=== PATIENT | male | born 1980 | race Caucasian/White ===

== ENCOUNTER 2018-08-04 01:34 | Emergency (ER) | payer OTHER ==
[2018-08-04] MEDS ORDERED: Aspirin 81 MG Tab.Chew PO ONE (02:08)
[2018-08-04] MEDS ORDERED: Nitroglycerin 0.4 MG Tab.SL SL ONE (02:25)
[2018-08-04 02:40] LABS: CHLORIDE,CL 101 mmol/L (98-107); SODIUM,NA 136 mmol/L (136-145)
[2018-08-04 02:41] LABS: ANION GAP 8.2 mmol/L (10-20)
[2018-08-04] MEDS ORDERED: Ketorolac 30 MG/ML SDV IVPUSH ONE (03:14)
[2018-08-04] MEDS ORDERED: methylPREDNISolone Sodium Succinate 125 MG/2 ML SDV IVPUSH ONE (03:14)
[2018-08-04] MEDS ORDERED: Azithromycin 250 MG Tab PO ONE (03:15)
--- NOTE | 2018-08-04 03:45 | EDM.PDOC ---
ED HPI GENERAL MEDICAL PROBLEM - General Chief Complaint: Cardiovascular Problem Stated Complaint: Chest Pain Time Seen by Provider: 08/04/18 01:50 Source of Information: Reports: Patient - History of Present Illness INITIAL COMMENTS - FREE TEXT/NARRATIVE: Chest pain, respirophasic and worse with movement. States also has a pain in his L arm as well. Denies any trauma. States that he had a heart cath in 2017- states that it "showed scar tissue". He received no stent or angioplasty. He is not currently on any medications. Denies any PMH. States that he has had some cough. Non-productive. No nausea, vomiting, or diarrhea. Onset: Today Location: Reports: Chest Quality: Reports: Dull Severity: Severe Left Middle Chest Pain Score (Numeric/FACES): 8 - Related Data Allergies Allergy/AdvReac Type Severity Reaction Status Date / Time meperidine [From Demerol] Allergy Anaphylactic Verified 08/04/18 02:01 Shock Past Medical History Cardiovascular History: Reports: Other (See Below) Other Cardiovascular History: Patient states he had an mild [place] in March of 2017 Genitourinary History: Reports: Renal Calculus - Infectious Disease History Infectious Disease History: Reports: Chicken Pox - Past Surgical History Cardiovascular Surgical History: Reports: Other (See Below) Other Cardiovascular Surgeries/Procedures: Did go the [facility] in [place] and states they only found scarring. Male Surgical History: Reports: Lithotripsy ([facility]) Other Male Surgeries/Procedures: previous stent placement-since removed- 11 mm stone per patient report Social & Family History - Family History Cardiac: Reports: CAD, Hypertension Oncologic: Reports: Pancreatic, Prostate - Tobacco Use Smoking Status *Q: Current Every Day Smoker Years of Tobacco use: 20 Packs/Tins Daily: 1 - Caffeine Use Caffeine Use: Reports: Coffee - Recreational Drug Use Recreational Drug Use: No ED ROS GENERAL - Review of Systems Review Of Systems: See Below Constitutional: Reports: No Symptoms HEENT: Reports: No Symptoms Respiratory: Reports: Pleuritic Chest Pain Cardiovascular: Reports: Other (negative heart cath 2016) Endocrine: Reports: No Symptoms GI/Abdominal: Reports: No Symptoms Musculoskeletal: Reports: Other (chest wall pain) Skin: Reports: No Symptoms Neurological: Reports: No Symptoms ED EXAM, GENERAL - Physical Exam Exam: See Below General Appearance: Alert, WD/WN, No Apparent Distress Respiratory/Chest: No Respiratory Distress, Lungs Clear, Normal Breath Sounds, No Accessory Muscle Use, Chest Non-Tender Cardiovascular: Normal Peripheral Pulses, Regular Rate, Rhythm, No Edema, No Gallop, No JVD, No Murmur, No Rub GI/Abdominal: Normal Bowel Sounds, Soft, Non-Tender, No Organomegaly, No Distention, No Abnormal Bruit, No Mass Extremities: Normal Inspection, Normal Range of Motion, Non-Tender, Normal Capillary Refill, No Pedal Edema Neurological: Alert, Oriented, CN II-XII Intact, Normal Cognition, Normal Gait, Normal Reflexes, No Motor/Sensory Deficits Skin Exam: Warm, Dry, Intact, Normal Color, No Rash Course - Vital Signs Last Recorded V/S: Last Vital Signs Temp 36.8 C 08/04/18 02:02 Pulse 66 08/04/18 02:02 Resp 12 08/04/18 02:02 BP 118/76 08/04/18 02:41 Pulse Ox 98 08/04/18 02:02 - Orders/Labs/Meds Orders: Active Orders 24 hr Category Date Time Status EKG Documentation Completion [RC] STAT Care 08/04/18 01:58 Active Chest 2V [CR] Stat Exams 08/04/18 01:59 Taken Labs: Laboratory Tests 08/04/18 08/04/18 08/04/18 Range/Units 02:05 02:05 02:05 WBC 12.1 H (4.0-10.0) x10^3/uL RBC 4.31 L (4.5-6.0) x10^6/uL Hgb 14.2 (14.0-18.0) g/dL Hct 40.5 (40.0-52.0) % MCV 94.0 H (78.0-93.0) fL MCH 32.9 H (26.0-32.0) pg MCHC 35.1 (32.0-36.0) g/dL RDW Coeff of Jade 13.4 (10.0-15.0) % Plt Count 175 (130-400) x10^3/uL Neut % (Auto) 50.2 (50.0-80.0) % Lymph % (Auto) 37.4 (25.0-50.0) % Hickman % (Auto) 9.9 (2.0-11.0) % Eos % (Auto) 2.2 (0.0-4.0) % Baso % (Auto) 0.3 (0.2-1.2) % PT 9.6 (9.6-11.4) SEC INR 0.9 L (2.0-3.5) D-Dimer, Quantitative (<=0.58) mg/LFEU Sodium 136 (136-145) mmol/L Potassium 4.2 (3.5-5.1) mmol/L Chloride 101 (98-107) mmol/L Carbon Dioxide 31 (21-32) mmol/L Anion Gap 8.2 L (10-20) mmol/L BUN 20 H (7-18) mg/dL Creatinine 1.0 (0.70-1.30) mg/dL Est Cr Clr Drug Dosing TNP Estimated GFR (MDRD) > 60 Glucose 97 (74-106) mg/dL Calcium 8.6 (8.5-10.1) mg/dL Corrected Calcium 8.84 (8.5-10.1) mg/dL Phosphorus 4.4 (2.6-4.7) mg/dL Magnesium 1.9 (1.8-2.4) mg/dL Total Bilirubin 0.4 (0.2-1.0) mg/dL AST 17 (15-37) U/L ALT 34 (16-63) U/L Alkaline Phosphatase 128 H (46-116) U/L C-Reactive Protein < 0.2 (<=0.9) mg/dL Total Protein 7.1 (6.4-8.2) g/dL Albumin 3.7 (3.4-5.0) g/dL Globulin 3.4 Albumin/Globulin Ratio 1.09 08/04/18 Range/Units 02:05 WBC (4.0-10.0) x10^3/uL RBC (4.5-6.0) x10^6/uL Hgb (14.0-18.0) g/dL Hct (40.0-52.0) % MCV (78.0-93.0) fL MCH (26.0-32.0) pg MCHC (32.0-36.0) g/dL RDW Coeff of Jade (10.0-15.0) % Plt Count (130-400) x10^3/uL Neut % (Auto) (50.0-80.0) % Lymph % (Auto) (25.0-50.0) % Hickman % (Auto) (2.0-11.0) % Eos % (Auto) (0.0-4.0) % Baso % (Auto) (0.2-1.2) % PT (9.6-11.4) SEC INR (2.0-3.5) D-Dimer, Quantitative 0.21 (<=0.58) mg/LFEU Sodium (136-145) mmol/L Potassium (3.5-5.1) mmol/L Chloride (98-107) mmol/L Carbon Dioxide (21-32) mmol/L Anion Gap (10-20) mmol/L BUN (7-18) mg/dL Creatinine (0.70-1.30) mg/dL Est Cr Clr Drug Dosing Estimated GFR (MDRD) Glucose (74-106) mg/dL Calcium (8.5-10.1) mg/dL Corrected Calcium (8.5-10.1) mg/dL Phosphorus (2.6-4.7) mg/dL Magnesium (1.8-2.4) mg/dL Total Bilirubin (0.2-1.0) mg/dL AST (15-37) U/L ALT (16-63) U/L Alkaline Phosphatase (46-116) U/L C-Reactive Protein (<=0.9) mg/dL Total Protein (6.4-8.2) g/dL Albumin (3.4-5.0) g/dL Globulin Albumin/Globulin Ratio Meds: Medications Discontinued Medications Generic Name Dose Route Start Last Admin Trade Name Freq PRN Reason Stop Dose Admin Aspirin 324 mg 08/04/18 02:08 08/04/18 02:12 Aspirin PO 08/04/18 02:09 324 mg ONETIME ONE Administration Azithromycin 500 mg 08/04/18 03:15 08/04/18 03:18 Zithromax PO 08/04/18 03:16 500 mg ONETIME ONE Administration Ketorolac Tromethamine 30 mg 08/04/18 03:14 08/04/18 03:18 Toradol IVPUSH 08/04/18 03:15 30 mg ONETIME ONE Administration Methylprednisolone Sodium Succinate 125 mg 08/04/18 03:14 08/04/18 03:18 Solu-Medrol IVPUSH 08/04/18 03:15 125 mg ONETIME ONE Administration Nitroglycerin 0.4 mg 08/04/18 02:25 08/04/18 02:41 Nitrostat SL 08/04/18 02:26 0.4 mg ONETIME ONE Administration - Radiology Interpretation Free Text/Narrative:: CXR negative Departure - Departure Time of Disposition: 03:46 Disposition: DC/Tfer to Other 70 Reason for Transfer *Q: Other (Went back to correction) Condition: Good Clinical Impression: Bronchitis, Atypical chest pain Instructions: Nonspecific Chest Pain, [id number], Acute Bronchitis, Adult Referrals: PCP,Not In Area [Primary Care Provider] - Forms: ED Department Discharge Additional Instructions: azithromycin 250mg starting tomorrow evening prednisone 40mg once daily starting tomorrow evening ibuprofen 600mg every 6 hours as needed for pain follow-up in clinic in 10-14 days if not gradually improving - My Orders Last 24 Hours: My Active Orders 08/04/18 01:58 EKG Documentation Completion [RC] STAT 08/04/18 01:59 Chest 2V [CR] Stat - Assessment/Plan Last 24 Hours: My Active Orders 08/04/18 01:58 EKG Documentation Completion [RC] STAT 08/04/18 01:59 Chest 2V [CR] Stat Plan: azithromycin 250mg starting tomorrow evening prednisone 40mg once daily starting tomorrow evening ibuprofen 600mg every 6 hours as needed for pain follow-up in clinic in 10-14 days if not gradually improving
== END 2018-08-04 03:35 | disposition other institution (70) ==
LOC: VM.ED 01:34 → SUPCPDRO 01:34 → VM.ED 03:35
DX: R07.89 Other chest pain (principal); J40 Bronchitis, not specified as acute or chronic; F17.210 Nicotine dependence, cigarettes, uncomplicated; Z88.8 Allergy status to other drugs, medicaments and biological substances
CPT/HCPCS: 36415; 71046; 80053; 83735; 84100; 85025; 85379; 85610; 86140; 93005; 96374; 96375; 99284; 99284-GF; A9270-GY; J1885; J2930